=== PATIENT | female | born 1985 | race Caucasian/White ===

== ENCOUNTER 2018-12-13 06:04 | Inpatient (IN) | payer MEDICAID, OTHER ==
[2018-12-13] MEDS ORDERED: PREGNANCY TEST KIT 1 EACH KIT MC ONE (06:56)
[2018-12-13] MEDS ORDERED: SCOPOLAMINE HYDROBROMIDE 1.5MG/72HR PATCH TD ONE (08:48)
[2018-12-13] MEDS ORDERED: DEXAMETHASONE SODIUM PHOSPHATE 10 MG/ML VIAL ONE (08:48)
[2018-12-13] MEDS ORDERED: ONDANSETRON HCL/PF 4 MG/ 2ML VIAL ONE (08:48)
[2018-12-13] MEDS ORDERED: PROPOFOL 200 MG/20 ML VIAL IV ONE (08:48)
[2018-12-13] MEDS ORDERED: MIDAZOLAM HCL 2 MG/2 ML VIAL ONE (08:48)
[2018-12-13] MEDS ORDERED: BUPIV. HCL 0.25% (2.5MG/ML)/EPI. (1:200,000) PF 30 ML VIAL IJ ONE (08:48)
[2018-12-13] MEDS ORDERED: FAMOTIDINE 20 MG/2 ML VIAL IV ONE ×2 (08:48)
[2018-12-13] MEDS ORDERED: fentaNYL CITRATE/PF 100 MCG/2 ML INJ. ONE ×3 (08:48→10:39)
[2018-12-13] MEDS ORDERED: LIDOCAINE HCL 2% PF 100MG/5ML VIAL IJ ONE (08:48)
[2018-12-13] MEDS ORDERED: LIDOCAINE HCL 1% PF 300MG/30ML VIAL ONE (08:48)
[2018-12-13] MEDS ORDERED: PROMETHAZINE HCL 25 MG/ML VIAL ONE ×2 (08:48→10:39)
[2018-12-13] MEDS ORDERED: LEVALBUTEROL NEB 1.25 MG/3 ML VIAL.NEB NEB ONE ×2 (08:48)
[2018-12-13] MEDS ORDERED: ceFAZolin SODIUM 1 GM VIAL ONE (08:48)
[2018-12-13] MEDS ORDERED: SODIUM CHLORIDE IRRIG SOLUTION 3,000 ML IRRIG.SOLN IR ONE (08:48)
[2018-12-13] MEDS ORDERED: LACTATED RINGERS 1,000 ML IV.SOLN IV ONE ×2 (08:48)
[2018-12-13] MEDS ORDERED: SEVOFLURANE 250 ML LIQUID IH ONE (08:48)
[2018-12-13] MEDS ORDERED: ePHEDrine SULFATE 50 MG/1 ML IVP ONE (08:48)
[2018-12-13] MEDS ORDERED: ENOXAPARIN SODIUM 40 MG/0.4 ML DISP.SYRIN SQ ONE (08:48)
[2018-12-13] MEDS ORDERED: MORPHINE SULFATE 4 MG/ML VIAL IVP PRN (11:51)
[2018-12-13] MEDS ORDERED: KETOROLAC TROMETHAMINE 30 MG/1ML VIAL IV PRN (11:51)
[2018-12-13 11:55] VITALS: BMI 45.4
[2018-12-13] MEDS: ONDANSETRON HCL/PF 4 MG/ 2ML VIAL IVP PRN ×2 (12:39→20:56)
[2018-12-13] MEDS: 0.9 % SODIUM CHLORIDE 1,000 ML IV SCH ×2 (12:40→20:26)
--- NOTE | 2018-12-13 13:40 | History and Physical Report ---
History of Present Illnes - History of Present Illness Reason for Visit: S/P LSG History of Present Illness: Patient is a 33-year-old female who has tried multiple diets and exercise programs with no success. She has always struggled with her weight. She has tried many diet plans, diet pills, and walking and has not been able to keep it off. Patient and surgeon decided to proceed with gastric sleeve procedure. Procedure went well- patient will be admitted and monitored s/p surgical intervention. Patient has been on a liquid diet prior to surgery so she is a risk of dehydration s/p surgery. She will be admitted for IV hydration to help hydrate patient until she is able to tolerate a sufficient oral intake, will treat pain with IV medication until patient is able to tolerate oral meds, IV antiemetics to help reduce episodes of nausea and/or vomiting. Patient will be monitored closely using telemetry. 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15) Gastrointestinal: GERD Psych: Anxiety, Depression Musculoskeletal: Chronic low back pain Grav: 3 Para: 2 Ab: 1 - Past Surgical History Past Surgical History: Tubal Ligation - Past Family History Mother Family History: None Father Family History: None - Past Social History Smoke: <1 pack per day, Quit (2018) Alcohol: None Drugs: None Lives: With Family Domestic Violence: Negative - Health Maintenance Health Maintenance: Cholesterol Influenza Vaccine: No, Patient Refused Pneumonia Vaccine: No Resuscitation Status: Resusciation Status Resuscitation Status Full Code - Unable to Obtain History Unable to Obtain: No Review of Systems - Review of Systems Constitutional: negative: Fever, Chills Eyes: negative: conjunctivae inflammation, eyelid inflammation ENT: negative: Ear Pain, Throat Pain Respiratory: negative: Cough, Shortness of Breath Cardiovascular: negative: Chest Pain, Light Headedness Gastrointestinal: Nausea, Abdominal Pain. negative: Vomiting Genitourinary: negative: Dysuria Musculoskeletal: negative: Back Pain Skin: Other (DRESSINGS X 5) Neurological: negative: Weakness, Confusion - Medications/Allergies Allergies/Adverse Reactions: Allergies Allergy/AdvReac Type Severity Reaction Status Date / Time No Known Allergies Allergy Unverified 12/13/18 11:51 Home Medications: Home Medications Omeprazole 20 mg PO DAILY 12/13/18 Current Inpatient Medications: Current Inpatient Medications Hydrocodone Bitart/Acetaminophen (Hycet 7.5-325mg/15 Ml Ud Cup) 30 ml PO Q4 PRN PRN Reason: Moderate Pain (Score 5-7) Stop: 12/17/18 11:50 Cefazolin Sodium/Dextrose (Ancef 1 Gm/50 Ml-Dextrose) 1 gm IV Q8H [facility] Stop: 12/14/18 01:01 Enoxaparin Sodium (Lovenox) 40 mg SQ DAILY [facility] Stop: 12/28/18 08:59 Famotidine (Pepcid) 20 mg IVP BID [facility] Stop: 12/17/18 20:59 Sodium Chloride (Normal Saline) 1,000 mls @ 150 mls/hr IV Q8H [facility] Last Admin: 12/13/18 12:40 Dose: 150 mls/hr Promethazine HCl 25 mg/ Sodium (Chloride) 51 mls @ 200 mls/hr IV Q6 PRN PRN Reason: Nausea / Vomiting Stop: 12/17/18 11:50 Ketorolac Tromethamine (Toradol) 30 mg IV Q6H PRN PRN Reason: For Mild Pain Stop: 12/17/18 11:50 Last Admin: 12/13/18 12:39 Dose: 30 mg Morphine Sulfate () 2 mg IVP Q2 PRN PRN Reason: PAIN 5-7 Stop: 12/14/18 11:50 Ondansetron HCl (Zofran) 4 mg IVP Q6H PRN PRN Reason: Nausea / Vomiting Stop: 12/17/18 11:50 Last Admin: 12/13/18 12:39 Dose: 4 mg Exam - Exam Vital Signs: Vital Signs (72 hours) 12/13/18 12/13/18 12/13/18 11:15 11:49 11:51 Temperature 97.6 F 97.6 F Pulse Rate 68 Pulse Rate [ 66 66 Right Pulse ox] Respiratory 20 20 Rate Blood Pressure 106/59 106/59 [Left Arm] O2 Sat by Pulse 95 95 Oximetry 12/13/18 12/13/18 11:52 11:55 Temperature 97.6 F 97.6 F Pulse Rate Pulse Rate [ 66 65 Right Pulse ox] Respiratory 20 18 Rate Blood Pressure 106/59 100/51 [Left Arm] O2 Sat by Pulse 95 99 Oximetry General: Alert, Oriented to Person, Oriented to Place, Oriented to Time, Cooperative, Mild distress, Morbidly Obese HEENT: PERRLA, Nose Mucous membr. moist/[place] Neck: Normal Range of Motion Carotids: NO BRUIT Lungs: Clear to auscultation, Normal air movement Cardiovascular: Regular rate, Normal S1, Normal S2 Peripheral Edema: NONE Peripheral Pulses: 2+ Abdomen: Soft, Decreased Bowel Sounds Integumentary: Warm, Dry, Pale, Other (INCISION DRSGS DRY AND INTACT X 5) Extremities: No edema, Normal pulses, No tenderness/swelling Neurological: Normal speech, Strength Equal Bilat, Normal tone, Sensation intact Psych/Mental Status: Mental status NL, Mood NL, Appropriate Affect, Intact Judgment Assessment/Plan - Assessment/Plan (1) S/P gastric surgery Status: Acute Current Visit: Yes Plan: Plan to admit for IV hydration, IV pain meds, and IV antiemetics. Lovenox and SCDs to help prevent DVTs, IS and frequent ambulation will be implemented. Start ice chips and advance diet as tolerated. (2) Morbid obesity due to excess calories Status: Acute Current Visit: Yes Plan: Patient is s/p gastric sleeve. We will assist patient with implementing gastric sleeve diet protocol starting with ice chips and clear liquids and advancing as tolerated. (3) Back pain Status: Acute Current Visit: Yes Qualifiers: Back pain location: low back pain Chronicity: chronic Back pain laterality: unspecified Plan: Will monitor- may use Kpad if needed VTE Assessment - RISK FACTOR SCORE VTE RISK FACTOR SCORES: OBESITY, MAJOR SURGERY/ANESTHESIA TIME > 1 HOUR - RISK VTE MODERATE RISK: SCORE OF 2 (RISK PROXIMAL DVT 2-4%) PROPHYAXIS NEEDED (Lovenox daily, SCDs while in bed, IS, frequent ambulation)
[2018-12-13] MEDS: PROMETHAZINE HCL 25 MG in 0.9 % SODIUM CHLORIDE 50 ML IV PRN (16:57)
[2018-12-13] MEDS: ceFAZolin SODIUM 1 GM/50 ML PIGGYBACK IV SCH (17:06)
[2018-12-13] MEDS: HYDROcodone-ACETAMIN 7.5-325/15ML SOLN UD CUP PO PRN (20:56)
[2018-12-13] MEDS: FAMOTIDINE 20 MG/2 ML VIAL IVP SCH (20:57)
[2018-12-14] MEDS: ceFAZolin SODIUM 1 GM/50 ML PIGGYBACK IV SCH (00:41)
[2018-12-14] MEDS: HYDROcodone-ACETAMIN 7.5-325/15ML SOLN UD CUP PO PRN ×5 (02:40→23:46)
[2018-12-14] MEDS: ONDANSETRON HCL/PF 4 MG/ 2ML VIAL IVP PRN ×2 (02:41→14:27)
[2018-12-14] MEDS: 0.9 % SODIUM CHLORIDE 1,000 ML IV SCH ×4 (03:24→23:50)
[2018-12-14 06:27] LABS: BASOPHILS % 0.2 % (0.0-1.5); NEUTROPHILS # 6.5 # k/uL (1.4-7.7)
--- NOTE | 2018-12-14 06:34 | Inpatient Progress Note ---
Subjective - Required Recertification Statement I anticipate X number of days because-include discharge plan: 1 - Review of Systems Events since last encounter: Patient states that she had a good night. She had some nausea- minimal vomiting- she was encouraged to sip her drinks and wait in between drinks- she states that her pain is tolerable and pain medications are working. She has been up walking in the [place], wearing SCDs while in bed, and using Incentive Spirometry- incision sites are dry and intact. General: Denies: Chills, Night Sweats HEENT: Denies: Head Aches, Dysphasia Pulmonary: Denies: Dyspnea, Pleuritic Chest Pain Cardiovascular: Denies: Chest Pain, Light Headedness Gastrointestinal: Nausea, Vomiting (dry heaves), Abdominal Pain Genitourinary: Denies: Dysuria Musculoskeletal: Denies: Back Pain Neurological: Denies: Weakness Objective - Exam Vitals and I&O: Vital Signs Temp 97.8 F 12/14/18 05:32 Pulse 51 L 12/14/18 05:39 Resp 18 12/14/18 05:32 BP 130/73 12/14/18 05:32 Pulse Ox 97 12/14/18 05:38 Intake & Output 12/13/18 12/13/18 12/14/18 11:59 23:59 11:59 Intake Total 350 1320 Output Total 400 375 950 Balance -400 -25 370 Weight 120.202 kg Intake: IV 300 1200 Left Hand 300 1200 Oral 50 120 Output: Urine 400 375 950 Other: Voiding Method Toilet Toilet # Voids 2 1 # Bowel Movements 0 General: Alert, Oriented to Person, Oriented to Place, Oriented to Time, Cooperative, Mild distress, Morbidly Obese HEENT: Atraumatic, PERRLA, Mouth Mucous membr. moist/[place], Nose Mucous membr. moist/[place] Neck: Supple, No JVD, +2 carotid pulse wo bruit Lungs: Clear to auscultation, Normal air movement, Speaks full Sentences Cardiovascular: Regular rate, Normal S1, Normal S2 Abdomen: Normal bowel sounds, Soft Extremities: No clubbing, No cyanosis, No edema, Normal pulses, No tenderness/swelling Skin: Normal, [place], Warm, Dry, Other (incision sites x5 are dry & intact) Neurological: Normal gait, Normal speech, Strength Equal Bilat, Normal tone, Sensation intact Psych/Mental Status: Mental status NL, Mood NL, Appropriate Affect, Intact Judgment - Results Results: Laboratory Results WBC 8.00 K/ul (4.00-12.00) 12/14/18 05:30 RBC 4.13 M/ul (3.90-5.20) 12/14/18 05:30 Hgb 12.1 g/dL (11.5-16.0) 12/14/18 05:30 Hct 35.7 % (34.5-46.5) 12/14/18 05:30 MCV 86.0 fl (80.0-100.0) 12/14/18 05:30 MCH 29.3 pg (28.0-34.0) 12/14/18 05:30 MCHC 33.9 g/dL (30.0-36.0) 12/14/18 05:30 RDW 13.3 % (11.3-14.3) 12/14/18 05:30 Plt Count 180 K/mm3 (130-400) 12/14/18 05:30 Neut % (Auto) 81.1 % (39.0-79.0) H 12/14/18 05:30 Lymph % (Auto) 11.3 % (16.0-50.0) L 12/14/18 05:30 [place] % (Auto) 6.4 % (0.0-11.0) 12/14/18 05:30 Eos % (Auto) 1.0 % (0.0-6.8) 12/14/18 05:30 Baso % (Auto) 0.2 % (0.0-1.5) 12/14/18 05:30 Neut # (Auto) 6.5 # k/uL (1.4-7.7) 12/14/18 05:30 Lymph # (Auto) 0.9 # k/uL (0.6-4.0) 12/14/18 05:30 Kinney # (Auto) 0.5 # k/uL (0.0-0.9) 12/14/18 05:30 Eos # (Auto) 0.1 # k/uL (0.0-0.6) 12/14/18 05:30 Baso # (Auto) 0.0 # k/uL (0.0-0.5) 12/14/18 05:30 Assessment/Plan - Assessment/Plan (1) S/P gastric surgery Status: Acute Assessment: Incision without redness or drainage, positive bowel sounds, minimal discomfort, belching and flatus, no extremity pain or edema, had some nausea with dry heaves Plan: Will continue to have patient ambulate frequently in the [place], wear SCDs while in bed, frequent use of incentive spirometer, continue IVF until patient can take in sufficient oral intake- pt is tolerating po meds (2) Morbid obesity due to excess calories Status: Acute Assessment: Continuing with bariatric diet- patient had some nausea and dry heaves Plan: Will continue with clear liquid diet (3) Back pain Status: Acute Qualifiers: Back pain location: low back pain Chronicity: chronic Back pain laterality: unspecified Assessment: Stable Plan: Will continue to monitor
[2018-12-14 06:58] LABS: eGFR (Non-African) > 60
[2018-12-14] MEDS: PROMETHAZINE HCL 25 MG in 0.9 % SODIUM CHLORIDE 50 ML IV PRN (07:03)
[2018-12-14] MEDS: FAMOTIDINE 20 MG/2 ML VIAL IVP SCH ×2 (09:03→22:53)
[2018-12-14] MEDS: ENOXAPARIN SODIUM 40 MG/0.4 ML DISP.SYRIN SQ SCH (09:03)
[2018-12-15] MEDS: ONDANSETRON HCL/PF 4 MG/ 2ML VIAL IVP PRN ×2 (05:08→11:20)
[2018-12-15] MEDS: HYDROcodone-ACETAMIN 7.5-325/15ML SOLN UD CUP PO PRN ×2 (05:08→11:21)
--- NOTE | 2018-12-15 06:42 | Discharge Summary ---
Discharge Summary - Discharge [facility] Admission Date: 12/13/18 Discharge Date: 12/15/18 History of Present Illness: Patient is a 33-year-old female who has tried multiple diets and exercise programs with no success. She has always struggled with her weight. She has tried many diet plans, diet pills, and walking and has not been able to keep it off. Patient and surgeon decided to proceed with gastric sleeve procedure. Procedure went well- patient will be admitted and monitored s/p surgical intervention. Patient has been on a liquid diet prior to surgery so she is a risk of dehydration s/p surgery. She will be admitted for IV hydration to help hydrate patient until she is able to tolerate a sufficient oral intake, will treat pain with IV medication until patient is able to tolerate oral meds, IV antiemetics to help reduce episodes of nausea and/or vomiting. Patient will be monitored closely using telemetry. Condition at Discharge: Stable Home Medications: Ambulatory Orders Medication Instructions Recorded Omeprazole 20 mg PO DAILY 12/13/18 Consultations this Visit: None Procedures this Visit: Other (S/p gastric sleeve surgery) Allergies/Adverse Reactions: Allergies Allergy/AdvReac Type Severity Reaction Status Date / Time No Known Allergies Allergy Unverified 12/13/18 11:51 Discharge Summary: Patient is a 33-year-old female that underwent the gastric sleeve procedure and has done well. She has been very cooperative with her care by ambulating frequently, using her incentive spirometer, and wearing her SCDs while in bed. She has been compliant with her diet during hospitalization. She is having minimal discomfort at this time and minimal nausea- she has is passing gas and belching. She is aware of discharge instructions and what she can and cannot do post surgical- she is aware of the strict diet she must follow to decrease discomfort and have success after procedure. She has family support and family will be taking her home- medications written by surgeon given to patient. She feels ready to go home. Hospital Course: Patient received pain medications, antiemetics, and IVF and was transitioned to oral. She has been up ambulating and using incentive spirometer. - Final Diagnosis (1) S/P gastric surgery Problems: Incision without redness or drainage, positive bowel sounds, minimal discomfort, belching and flatus, no extremity pain or edema Right or Left: Right (2) Morbid obesity due to excess calories Problems: Continue with bariatric sleeve diet- clear liquids today and start full liquids tomorrow Right or Left: Right (3) Back pain Problems: STable Right or Left: Right
[2018-12-15] MEDS: FAMOTIDINE 20 MG/2 ML VIAL IVP SCH (08:36)
[2018-12-15] MEDS: ENOXAPARIN SODIUM 40 MG/0.4 ML DISP.SYRIN SQ SCH (08:36)
[2018-12-15 10:04] VITALS: BP 120/72
--- NOTE | 2018-12-17 10:11 | Operative Note ---
PREOPERATIVE DIAGNOSIS: 1. Morbid obesity. 2. Arthritis. 3. Chronic back pain. POSTOPERATIVE DIAGNOSIS: 1. Morbid obesity. 2. Arthritis. 3. Chronic back pain. PROCEDURES PERFORMED: 1. Laparoscopic vertical sleeve gastrectomy. 2. Upper gastrointestinal endoscopy. SURGEON: Brent Vicente M.D. INDICATIONS FOR PROCEDURE: Ms. Murray is a 33-year-old female who presented with features of morbid obesity. She was noted to have a weight of 265 pounds with a BMI of 45.2 with the above-listed comorbidities. The patient was advised laparoscopic vertical sleeve gastrectomy and possible hiatal hernia repair. The patient showed understanding and agreed to proceed. DESCRIPTION OF PROCEDURE: After explaining to the patient in detail and informed consent was obtained, the patient was identified in the preoperative holding area. The patient was transferred to the operating room and was placed in supine position. Sequential compressive devices were placed for DVT prophylaxis. Preoperative antibiotics were given. After induction of anesthesia, the abdomen was prepped and draped in a sterile fashion. Through a left upper quadrant 1-cm incision, and using Optiview technique, the peritoneal cavity was entered and pneumoperitoneum was created. Thereafter, under direct vision, another 5-mm trocar was placed in the left midabdomen and another 15-mm trocar was placed in the right midabdomen. Through a 1-cm incision in the right subcostal region, another 5-mm trocar was placed. Through a 1-cm incision in the epigastrium, a Maximino retractor was introduced and the left lobe of the liver was retracted. On initial inspection, the patient was noted to have no evidence of hiatal hernia. I took down the gastroepiploic vessels using a LigaSure. This was continued superiorly. The short gastric vessels were taken down. The gastrophrenic ligament was divided and the Angle of His was mobilized. The posterior attachments of the stomach on the pancreas were released. Distally, the gastroepiploic vessels were taken down up to about 4 cm proximal to the pylorus. At this point, a #38 [place]st Bougie was introduced into the stomach and was placed along the lesser curve. The stomach was then divided in a vertical fashion with multiple Endo CINDY Covidien Black Load Staplers. The first firing was directed outwards towards the greater curvature. Subsequent firings were directed towards the Angle of His to create a loose sleeve around the #38 Haitian bougie. The bougie was then removed and an upper GI endoscopy was performed at this point. The scope was introduced into the esophagus and was gradually advanced into the stomach. The GE junction appeared normal. The sleeve size appeared normal. No evidence of any active bleeding was noted. The stomach was insufflated with air and irrigation of fluid along the staple line revealed no evidence of air leak. The stomach was then suctioned out and the scope was removed. Absolute hemostasis was ensured. Thorough saline irrigation was given. The Maximino retractor was removed. Approximately 10 mL of a lidocaine- Marcaine mix was instilled under the left hemidiaphragm. The sleeve gastrectomy specimen was removed. The abdomen was then deflated. The incisions were closed with 4-0 Monocryl. Dermabond was applied. Approximately 10 mL of a lidocaine- Marcaine mix was injected into all the incisions. The patient was awakened from anesthesia and was transferred to the recovery room in stable condition. ESTIMATED BLOOD LOSS: Approximately 25 mL. CONDITION OF THE PATIENT: Stable. FLUIDS GIVEN: Per Anesthesia note. SPECIMEN(S) SENT: Sleeve gastrectomy specimen. COMPLICATIONS: None. ANESTHESIA: General. Brent Vicente M.D. LELA/estefany (Please copy [facility] provider when applicable) Job #[id number] KOFI
== END 2018-12-15 11:26 | disposition home or self-care (01) | DRG 621 ==
LOC: OPSURG 06:04 → SOUTH 11:46
PROVIDERS: ADMIT Nurse Practitioner Family; ATTEND Nurse Practitioner Family
PROC: 0DB64Z3 Excision of Stomach, Percutaneous Endoscopic Approach, Vertical (ICD-10-PCS; principal; 2018-12-13)
DX: E66.01 Morbid (severe) obesity due to excess calories (principal); G89.29 Other chronic pain; M54.5 Low back pain; M25.562 Pain in left knee; M25.561 Pain in right knee; K21.9 Gastro-esophageal reflux disease without esophagitis; F41.9 Anxiety disorder, unspecified; M19.90 Unspecified osteoarthritis, unspecified site; F32.9 Major depressive disorder, single episode, unspecified; Z87.891 Personal history of nicotine dependence; Z68.42 Body mass index [BMI] 45.0-49.9, adult; Z98.51 Tubal ligation status; Z79.899 Other long term (current) drug therapy; Z83.3 Family history of diabetes mellitus; Z82.49 Family history of ischemic heart disease and other diseases of the circulatory system; Z80.9 Family history of malignant neoplasm, unspecified
CPT/HCPCS: 43235; 80053; 85025; 99221; 99231; 99232; 99238; J0690; J1650; J1885; J2001; J2250; J2270; J2405; J2550; J2704; J3010; J7614; 43775; A9270-GY; J7030; J7120; S1016